=== PATIENT | male | born 1970 | race African-American/Black ===

== ENCOUNTER 2020-03-25 20:57 | Emergency (ER) | payer BC ==
[~2020-03-25] VITALS: Ht 177.8 cm; Wt 108.9 kg
[2020-03-25 21:20] LABS: *BILIRUBIN,URIN NEGATIVE (NEGATIVE); *BLOOD, URINE 2+ (NEGATIVE); *CLARITY,URINE CLEAR (CLEAR); *COLOR,URINE YELLOW (YELLOW); *KETONES,URINE NEGATIVE (NEGATIVE); *UROBILINOGEN,URINE 0.2 E.U./dl (NORMAL); LEUKOCYTE ESTERASE ,URINE 1+ (NEGATIVE); NITRITE, URINE NEGATIVE (NEGATIVE); UGLUCOSE NEGATIVE (NEGATIVE)
[2020-03-25 21:31] LABS: BACTERIA,URINE NONE SEEN /HPF (NONE SEEN)
[2020-03-25] MEDS ORDERED: SULFAMETH/TRIMETH 800/160 MG TABLET PO ONE (22:15)
[2020-03-25] MEDS ORDERED: SULFAMETH/TRIMETH 800/160 MG TABLET ONE (22:17)
--- NOTE | 2020-03-25 22:28 | NUR ---
Patient discharged to home in stable condition. Written and verbal after care instructions given. Patient verbalizes understanding of instructions. Stressed follow up or return to ER for worsening s/s. Patient ambulated with stable gait.
[2020-03-25 22:29] VITALS: BP 140/61
== END 2020-03-25 22:29 | disposition home or self-care (01) ==
LOC: ER 21:01
DX: N13.2 Hydronephrosis with renal and ureteral calculous obstruction (principal); N39.0 Urinary tract infection, site not specified; Z87.442 Personal history of urinary calculi
CPT/HCPCS: 87086; A4663